=== PATIENT | female | born 1995 | race African-American/Black ===

== ENCOUNTER → 2020-01-01 | Outpatient (CLI) | payer OTHER ==
--- NOTE | 2020-01-01 12:31 | RAD ---
ABDOMEN LTD History: Right upper quadrant pain Comparison: None. Findings: Multiple sonographic images of the abdomen are submitted. There is no abnormality of the visualized pancreas. There is segmental visualization of the inferior vena cava. Hepatic echotexture is within normal limits. Right lobe of the liver measured 15.7 cm longitudinal. Gallbladder is present without intraluminal abnormality, wall thickening, or pericholecystic fluid. Common bile duct is within normal limits about 0.2 cm. Right kidney measured 10.3 x 5.1 x 3.4 cm, no hydronephrosis. Impression: 1. No significant abnormality is demonstrated. Electronically signed by: Eddy Gifford MD (01/01/2020 12:29 PM) [id number]
== END | disposition home or self-care (01) ==
LOC: US 10:46
PROVIDERS: ATTEND Emergency Medicine
DX: K81.9 Cholecystitis, unspecified (principal)
CPT/HCPCS: 76705

== ENCOUNTER 2020-02-17 20:53 | Emergency (ER) | payer OTHER ==
[~2020-02-17] VITALS: Ht 160 cm; Wt 56.0 kg
[2020-02-17 20:55] VITALS: BP 128/55
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
[2020-02-17] MEDS ORDERED: CYCL5TAB PO (21:44)
[2020-02-17] MEDS ORDERED: ACETAMINOPHEN 325 MG TABLET PO ONE (21:45)
[2020-02-17] MEDS ORDERED: CYCLOBENZAPRINE 10 MG TABLET. PO ONE (21:45)
== END 2020-02-17 22:00 | disposition home or self-care (01) ==
LOC: ER 20:53
DX: S29.012A Strain of muscle and tendon of back wall of thorax, initial encounter (principal); X58.XXXA Exposure to other specified factors, initial encounter; Y93.89 Activity, other specified; Y92.89 Other specified places as the place of occurrence of the external cause; Y99.8 Other external cause status
CPT/HCPCS: 99283

== ENCOUNTER 2020-09-08 08:03 | Emergency (ER) | payer OTHER ==
[~2020-09-08] VITALS: Ht 160 cm; Wt 52.3 kg
[~2020-09-08 08:03] MED LIST: CYCL5TAB PO
[2020-09-08] MEDS ORDERED: IBUPROFEN 600 MG TABLET. PO ONE ×2 (08:25→08:30)
--- NOTE | 2020-09-08 08:26 | PHYS DOC ---
Past History Past Medical History: No Pertinent History Past Surgical History: Other Additional Past Surgical Histo: umbilical hernia repair Alcohol Use: None Adult General Chief Complaint Chief Complaint: FINGER INJURY HPI HPI Patient is a 24-year-old female who presents with left pinky finger injury. States that just before coming to the emergency department she slammed her pinky finger in the trunk of her car she is getting ready to go to work. States that it hurts, approximately 5 out of 10, dull and achy in nature. Denies any other injuries. States she is up-to-date on her tetanus vaccination. Review of Systems Review of Systems Review of systems otherwise unremarkable except noted in HPI. Current Medications Current Medications Current Medications Medications (Trade) Dose Ordered Sig/Flavia Start Time Stop Time Status Last Admin Dose Admin Ibuprofen (Motrin) 600 mg 1X ONCE 09/08/20 08:30 09/08/20 08:31 UNV Allergies Allergies Allergies Coded Allergies Type Severity Reaction Last Updated Verified No Known Drug Allergies 09/08/20 No Physical Exam Physical Exam Constitutional: Well developed, well nourished, no acute distress, non-toxic appearance. [] Skin: Warm, dry, no erythema, no rash. [] Extremities: Neurovascular exam intact. Left distal fifth digit with some contusion/bruising and tenderness with a tiny blood blister underneath the nail. Rest of the nail intact, and pink with no obvious damage. Neurologic: Alert and oriented X 3, no focal deficits noted. [] Psychologic: Affect normal, judgement normal, mood normal. [] EKG EKG [] Radiology/Procedures Radiology/Procedures [] Exam performed: Left hand 3 views. Indication: Left fifth digit injury, slammed in the door. Date of Service: 09/08/2020 Comparison: None available Discussion: PA, oblique lateral radiographs of the hand is obtained. There is mild volar subluxation of fifth proximal interphalangeal joint, best seen on oblique and lateral projection with mild overlying soft tissue swelling. There is no foreign body. Impression: Mild subluxation at the fifth proximal phalanx with soft tissue swelling.. No acute fracture is identified. Electronically signed by: Indiana Hurtado MD (09/08/2020 9:03 AM) [id number] Heart Score C/O Chest Pain: No Risk Factors: Risk Factors: DM, Current or recent (<one month) smoker, HTN, HLP, family history of CAD, obesity. Risk Scores: Risk Factors: DM, Current or recent (<one month) smoker, HTN, HLP, family history of CAD, obesity. Course & Med Decision Making Course & Med Decision Making Patient is a 24-year-old female who presents after shutting her pinky in the trunk of her car Vital signs not concerning. Physical exam noted above. Patient given ice pack and ibuprofen. Up-to-date on tetanus. Imaging notable for mild subluxation at the fifth proximal phalanx with some soft tissue swelling but no acute osseous abnormalities. Patient with full range of motion in the emergency department and neurovascularly intact. Most likely reduced on its own. Placed in a finger splint and gave pain control regimen for home. Advised to follow-up with primary care as needed. Gave return precautions to the ED. Patient grateful, verbalized understanding and agreed with plan of discharge. Dragon Disclaimer Dragon Disclaimer This electronic medical record was generated, in whole or in part, using a voice recognition dictation system. Departure Departure: Impression: Primary Impression: Finger injury Additional Impression: Subluxation Disposition: 20 Condition: GOOD Referrals: PCP,AGUSTINA (PCP) ALE OG MD Patient Instructions: RICE - Routine Care for Injuries Additional Instructions: Please read all of the attached information carefully. You can use ice, Tylenol and ibuprofen as needed at home for pain control. You can participate in activities as tolerated. Please follow-up with your primary care physician when you can to set up a follow-up visit in the next week or 2. If you do not have a primary care physician you can contact the local primary care physician at the number provided. Please come back to the emergency department immediately with new or concerning symptoms. Scripts Oxycodone HCl/Acetaminophen (Percocet 5-325 mg Tablet) 1 Each Tablet 1 TAB PO TID PRN for finger injury MDD 2 Tablet(s) for 2 Days, #6 TAB 0 Refills Prov: JAVIER GOODSON MD 09/08/20 Ibuprofen (IBUPROFEN) 600 Mg Tablet 600 MG PO QID for finger injury for 10 Days, #40 TAB Prov: JAVIER GOODSON MD 09/08/20 Problem Qualifiers JAVIER GOODSON MD September 08, 2020 08:26
[2020-09-08] MEDS ORDERED: IBUP600T16 PO (09:04)
--- NOTE | 2020-09-08 09:05 | RAD ---
Exam performed: Left hand 3 views. Indication: Left fifth digit injury, slammed in the door. Date of Service: 09/08/2020 Comparison: None available Discussion: PA, oblique lateral radiographs of the hand is obtained. There is mild volar subluxation of fifth pro ximal interphalangeal joint, best seen on oblique and lateral projection with mild overlying soft tis jonathan swelling. There is no foreign body. Impression: Mild subluxation at the fifth proximal phalanx with soft tissue swelling.. No acute fracture is ident ified. Electronically signed by: Indiana Hurtado MD (09/08/2020 9:03 AM) [id number]
[2020-09-08] MEDS ORDERED: OXYC-325 PO (09:19)
[2020-09-08 09:38] VITALS: BP 125/85
== END 2020-09-08 09:38 | disposition home or self-care (01) ==
LOC: ER 08:03
DX: S63.237A Subluxation of proximal interphalangeal joint of left little finger, initial encounter (principal); W22.8XXA Striking against or struck by other objects, initial encounter; Y93.89 Activity, other specified; Y92.89 Other specified places as the place of occurrence of the external cause; Y99.8 Other external cause status
CPT/HCPCS: 29130; 73130; 99283-25

== ENCOUNTER 2020-09-10 09:23 | Emergency (ER) | payer OTHER ==
[~2020-09-10] VITALS: Ht 160 cm; Wt 52.3 kg
[~2020-09-10 09:23] MED LIST changes: +IBUP600T16 PO; +OXYC-325 PO
[2020-09-10 09:31] VITALS: BP 122/78
--- NOTE | 2020-09-10 09:56 | PHYS DOC ---
Past History Past Medical History: No Pertinent History Past Surgical History: Other Additional Past Surgical Histo: umbilical hernia repair Alcohol Use: None General Adult EDM: Chief Complaint: FINGER INJURY HPI: HPI: 24-year-old female returns the emergency room with a left fifth digit pain. The patient smashed her finger 2 days ago and came to this facility for evaluation. She was told it was dislocated and placed in a splint. The patient had a small subungual hematoma at that time but it is expanded to most of the nail. She also has surrounding erythema and warmth. She is concerned about infection. She states that she has not had any bleeding from the nail. It is painful to palpation. She denies fever or chills. Review of Systems: Review of Systems: Constitutional: Denies fever or chills Eyes: Denies change in visual acuity HENT: Denies nasal congestion or sore throat Respiratory: Denies cough or shortness of breath Cardiovascular: Denies chest pain or edema GI: Denies abdominal pain, nausea, vomiting, bloody stools or diarrhea : Denies dysuria Musculoskeletal: Left fifth digit pain Integument: Denies rash Neurologic: Denies headache, focal weakness or sensory changes Endocrine: Denies polyuria or polydipsia Lymphatic: Denies swollen glands Psychiatric: Denies depression or anxiety Allergies: Allergies: Allergies Coded Allergies Type Severity Reaction Last Updated Verified No Known Drug Allergies 09/08/20 No Physical Exam: PE: Constitutional: Well developed, well nourished, no acute distress, non-toxic appearance. [] HENT: Normocephalic, atraumatic, bilateral external ears normal, oropharynx moist, no oral exudates, nose normal. [] Eyes: PERRLA, EOMI, conjunctiva normal, no discharge. [] Neck: Normal range of motion, no tenderness, supple, no stridor. [] Cardiovascular:Heart rate regular rhythm, no murmur [] Lungs & Thorax: Bilateral breath sounds clear to auscultation [] Abdomen: Bowel sounds normal, soft, no tenderness, no masses, no pulsatile masses. [] Skin: Warm, dry, no erythema, no rash. [] Back: No tenderness, no CVA tenderness. [] Extremities: Left fifth digit with subungual hematoma and surrounding erythema and warmth. [] Neurologic: Alert and oriented X 3, normal motor function, normal sensory function, no focal deficits noted. [] Psychologic: Affect normal, judgement normal, mood normal. [] EKG: EKG: [] Radiology/Procedures: Radiology/Procedures: [] Heart Score: C/O Chest Pain: N/A Risk Factors: Risk Factors: DM, Current or recent (<one month) smoker, HTN, HLP, family history of CAD, obesity. Risk Scores: Score 0 - 3: 2.5% MACE over next 6 weeks - Discharge Home Score 4 - 6: 20.3% MACE over next 6 weeks - Admit for Clinical Observation Score 7 - 10: 72.7% MACE over next 6 weeks - Early Invasive Strategies Course & Med Decision Making: Course & Med Decision Making Pertinent Labs and Imaging studies reviewed. (See chart for details) The patient appeared to need a trephination procedure. I was able to perform this with an 18-gauge needle. I slowly board through the nail with a twisting motion. There was spontaneous evacuation of the thigh blood once a hole was achieved. This was a painless procedure for the patient. She tolerated it well. There were no complications. Given the erythema around the area, I will treat her with Keflex for 7 days. She is stable for discharge at this time. [] Dragon Disclaimer: Malini Disclaimer: This electronic medical record was generated, in whole or in part, using a voice recognition dictation system. Departure Departure: Impression: Primary Impression: Subungual hematoma of left little finger Qualified Codes: S60.152A - Contusion of left little finger with damage to nail, initial encounter Additional Impression: Cellulitis Qualified Codes: L03.012 - Cellulitis of left finger Disposition: 01 HOME / SELF CARE / HOMELESS Condition: IMPROVED Referrals: PCP,NO (PCP) Patient Instructions: Subungual Hematoma, [id number] Scripts Cephalexin (KEFLEX) 750 Mg Capsule 1 CAP PO BID for cellulitis for 7 Days, #14 CAP 0 Refills Prov: RONEN GARZA DO 09/10/20 RONEN GARZA DO September 10, 2020 09:56
[2020-09-10] MEDS ORDERED: CEPH750C9 PO (10:17)
== END 2020-09-10 10:23 | disposition home or self-care (01) ==
LOC: ER 09:23
DX: S60.052A Contusion of left little finger without damage to nail, initial encounter (principal); L03.012 Cellulitis of left finger; X58.XXXA Exposure to other specified factors, initial encounter; Y93.89 Activity, other specified; Y92.89 Other specified places as the place of occurrence of the external cause; Y99.8 Other external cause status
CPT/HCPCS: 99283

== ENCOUNTER 2020-09-19 22:22 | Emergency (ER) | payer OTHER ==
[~2020-09-19] VITALS: Ht 160 cm; Wt 53.9 kg
[~2020-09-19 22:22] MED LIST changes: +CEPH750C9 PO
--- NOTE | 2020-09-19 22:54 | PHYS DOC ---
Past History Past Medical History: No Pertinent History Past Surgical History: Other Additional Past Surgical Histo: umbilical hernia repair Alcohol Use: None Adult General HPI HPI Patient is a 24-year-old female who presents to the emergency department with a chief complaint of concern for yeast infection. States she is had yeast infections in the past and has had a little bit of white discharge over the last couple of days with some itching that feels similar to that. States that she [place] s some bumps down around her vagina that she would like looked at as well. States she also has a history of chlamydia that was treated about 6 months ago. States she has been with her current partner only and he is having no symptoms. Denies any vaginal bleeding dysuria, hematuria or dyspareunia. Denies any fevers, chest pain, shortness of breath, abdominal pain, nausea, vomiting. Review of Systems Review of Systems Review of systems otherwise unremarkable except noted in HPI Allergies Allergies Allergies Coded Allergies Type Severity Reaction Last Updated Verified No Known Drug Allergies 09/08/20 No Physical Exam Physical Exam Constitutional: Well developed, well nourished, no acute distress, non-toxic appearance. [] HENT: Normocephalic, atraumatic, bilateral external ears normal, oropharynx moist, no oral exudates, nose normal. [] Eyes: conjunctiva normal, no discharge. [] Neck: Normal range of motion, no tenderness, supple, no stridor. [] Cardiovascular: Normal sinus rhythm Lungs & Thorax: No respiratory distress Abdomen: soft, no tenderness, no masses, no pulsatile masses. : Patient with minimal white vaginal discharge. Patient with scattered tiny lesions that appear solid with a tiny erythematous base. Does not appear to have any vesicles. [] Skin: Warm, dry, no erythema, no rash. [] Back: no CVA tenderness. [] Extremities: No tenderness, no cyanosis, no clubbing, ROM intact, no edema. [] Neurologic: Alert and oriented X 3, normal motor function, normal sensory function, no focal deficits noted. [] Psychologic: Affect normal, judgement normal, mood normal. [] EKG EKG [] Radiology/Procedures Radiology/Procedures [] Heart Score C/O Chest Pain: No Risk Factors: Risk Factors: DM, Current or recent (<one month) smoker, HTN, HLP, family history of CAD, obesity. Risk Scores: Risk Factors: DM, Current or recent (<one month) smoker, HTN, HLP, family h istory of CAD, obesity. Course & Med Decision Making Course & Med Decision Making Patient is a 24-year-old female who presents to the emergency department with a chief complaint of concern for yeast infection and lesions on her vagina Vital signs not concerning. Physical exam noted above. Discussed differential diagnosis of BV versus Trichomonas versus yeast versus gonorrhea versus chlamydia versus herpes. No obvious open wounds or lymphadenopathy. Patient stated that if the BV/trichomoniasis or yeast came back positive she would want the treatment tonight. States she will wait for the results of her gonorrhea/Chanelle/herpes panel to result before being treated by them. No yeast/trichomonas or BV. Discussed all findings with patient. Given resource information for local primary care physicians and free clinics. Advised to call them first thing in the morning to establish care, and update on ED visit as well as set up a visit as soon as possible. Made aware that the rest of her labs would be available in 24 to 72 hours and she would be called if positive to discuss treatment. Also advised that she can call as well. Patient grateful, verbalized understanding and agreed with plan of discharge [] Dragon Disclaimer Dragon Disclaimer This electronic medical record was generated, in whole or in part, using a voice recognition dictation system. Departure Departure: Disposition: HOME / SELF CARE / HOMELESS Condition: GOOD Referrals: PCP,NO (PCP) Patient Instructions: Sexually Transmitted Disease Additional Instructions: Please read all the attached information very carefully. As discussed, your bacterial vaginosis, trichomonas and yeast were negative here in the emergency department today. As discussed your gonorrhea, chlamydia and herpes test should result in 24 to 72 hours. If they should be positive you will be given a call to discuss treatment. You may also feel free to call and check on results. Please call your primary care physician first thing in the morning to update on your ED visit and set up a follow-up as soon as you can. You are also given res ources for local primary care physician and free clinics. Please come back to the ED with new or concerning symptoms as discussed. JAVIER GOODSON MD September 19, 2020 22:54
[2020-09-20 00:01] LABS: BILIRUBIN,URINE NEG (NEG); CLARITY,URINE CLEAR; COLOR,URINE YELLOW; GLUCOSE,URINE NEG (NEG)
[2020-09-20 00:02] LABS: BACTERIA,URINE 0 /HPF (0-FEW); NITRITE,URINE NEG (NEG); RBC,URINE 0 /HPF (0-2); SQUAMOUS EPITHELIAL CELL,UR FEW /LPF; UROBILINOGEN,URINE 0.2 mg/dL (0.2 mg/dL); WBC,URINE 0 /HPF (0-4)
[2020-09-20 00:55] VITALS: BP 118/70
[2020-09-20] MEDS ORDERED: oxyCODONE/APAP 5/325 1 TAB TABLET PO ONE (01:00)
== END 2020-09-20 01:03 | disposition home or self-care (01) ==
LOC: ER 22:22
DX: B37.9 Candidiasis, unspecified (principal); N76.0 Acute vaginitis; Z20.2 Contact with and (suspected) exposure to infections with a predominantly sexual mode of transmission
CPT/HCPCS: 81001; 86695; 86696; 99283; Q0111; 36415; 81025

== ENCOUNTER 2020-11-25 21:12 | Emergency (ER) | payer OTHER ==
[~2020-11-25] VITALS: Ht 160 cm; Wt 51.2 kg
[2020-11-25 21:25] VITALS: BP 119/74
[2020-11-25] MEDS ORDERED: PENI500T PO (21:47)
--- NOTE | 2020-11-25 21:47 | PHYS DOC ---
Past History Past Medical History: No Pertinent History (GALINA KIMBALL APRN) Past Surgical History: Other Additional Past Surgical Histo: umbilical hernia repair (GALINA KIMBALL APRN) Alcohol Use: None (GALINA KIMBALL APRN) General Adult HPI: HPI: Patient is a 25-year-old female being seen in the ER today for sore throat, fevers, body aches, headache that started today. She rates her pain 7/10. No treatment prior to arrival. Patient denies cough, shortness of breath, nausea/vomiting, sick exposures, nasal congestion/drainage. (GALINA KIMBALL APRN) Review of Systems: Review of Systems: 14 body systems of the review of systems have been reviewed. See HPI for pertinent positive and negative responses, otherwise all other systems are negative, nonpertinent or noncontributory (GALINA KIMBALL APRN) Allergies: Allergies: Allergies Coded Allergies Type Severity Reaction Last Updated Verified No Known Drug Allergies 09/08/20 No (GALINA KIMBALL APRN) Physical Exam: PE: Constitutional: Well developed, well nourished, no acute distress, non-toxic appearance. [] HENT: Normocephalic, atraumatic, bilateral external ears normal, oropharynx moist, 3+ tonsillar enlargement with exudate, tonsillar and pharyngeal erythema, no trismus, nose normal. [] Eyes: PERRL, conjunctiva normal, no discharge. [] Neck: Normal range of motion, no tenderness, supple, no stridor, no cervical lymphadenopathy. [] Cardiovascular:Heart rate regular rhythm, no murmur [] Lungs & Thorax: Bilateral breath sounds clear to auscultation [] Abdomen: Bowel sounds normal, soft, no tenderness, no masses, no pulsatile masses. [] Skin: Warm, dry, no erythema, no rash. [] Back: Normal range of motion Extremities: No tenderness, no cyanosis, no clubbing, ROM intact, no edema. [] Neurologic: Alert and oriented X 3, normal motor function, normal sensory f unction, no focal deficits noted. [] Psychologic: Affect normal, judgement normal, mood normal. [] (GALINA KIMBALL APRN) EKG: EKG: [] (GALINA KIMBALL APRN) Radiology/Procedures: Radiology/Procedures: [] (GALINA KIMBALL APRN) Heart Score: C/O Chest Pain: No Risk Factors: Risk Factors: DM, Current or recent (<one month) smoker, HTN, HLP, family history of CAD, obesity. Risk Scores: Score 0 - 3: 2.5% MACE over next 6 weeks - Discharge Home Score 4 - 6: 20.3% MACE over next 6 weeks - Admit for Clinical Observation Score 7 - 10: 72.7% MACE over next 6 weeks - Early Invasive Strategies (GALINA KIMBALL APRN) Course & Med Decision Making: Course & Med Decision Making Pertinent Labs and Imaging studies reviewed. (See chart for details) [] Patient is a 25-year-old female being seen in the ER today for sore throat, fevers, body aches, headache that started today. Patient was tested for strep. She was also tested for COVID-19. Her rapid strep test was positive. Her Covid test is pending and she will be notified of those results at that time. Patient was treated with Tylenol for fever and she was given her first dose of an antibiotic. I discussed with patient all findings and diagnostic testing as well as the need to follow-up with PCP for further evaluation and treatment or return to the ER if any new or worsening symptoms. Strict return precautions were also discussed at length. Patient voiced understanding and agreement with the plan. Patient is hemodynamically stable at the time of disposition. (GALINA KIMBALL APRN) Course & Med Decision Making Did not see or evaluate patient. Agree with GEOLOGICAL MANAGER's work-up and disposition per note (JAVIER GOODSON MD) Dragon Disclaimer: Dragon Disclaimer: This electronic medical record was generated, in whole or in part, using a voice recognition dictation system. (GALINA KIMBALL APRN) Departure Departure: Impression: Primary Impression: Pharyngitis Qualified Codes: J02.0 - Streptococcal pharyngitis Disposition: HOME / SELF CARE / HOMELESS Condition: GOOD Referrals: PCP,NO (PCP) Patient Instructions: Viral and Bacterial Pharyngitis Additional Instructions: You were seen in the ER today for body aches, headache, sore throat, and fevers. You were tested for strep throat. As we discussed, this was positive. You were given Tylenol for your fever in the ER and your first dose of the antibiotic. Please make sure that you start and finish the antibiotic completely. Please practice good hygiene. Throw away your toothbrush and get a new one. You were also tested for COVID-19. You will be notified of these results when they become available, they typically result in 24 to 48 hours. Please self isolate until you receive these results. If you are positive for COVID-19 you must self isolate for 10 days past your symptom onset. Make sure you are pushing fluids. You can take Tylenol or ibuprofen for your pain or fevers. If you develop increase throat swelling difficulty breathing, difficulty swallowing, high fevers refractory to treatment, shortness of breath, nausea/vomiting, chest pain please return to the ER immediately. EMERGENCY DEPARTMENT GENERAL DISCHARGE INSTRUCTIONS Thank you for coming to [facility] (ED) today and trusting us with you care. We trust that you had a positivie experience in our Emergency Department. If you wish to speak to the department management, you may call the director at [phone]. YOUR FOLLOW UP INSTRUCTIONS ARE FOLLOWS: 1. Do you have a private Doctor? If you do not have a private doctor, please ask for a resource list of physicians or clinics that may be able to assist you with follow up care. 2. The Emergency Physician has interpreted your x-rays. The X-Ray specialist will also review them. If there is a change in the findings, you will be notified in 48 hours when at all possible. 3. A lab test or culture has been done, your results will be reviewed and you will be notified if you need a change in treatment. ADDITIONAL INSTRUCTIONS AND INFORMATION: 1. Your care today has been supervised by a physician who is specially trained in emergency care. Many problems require more than one evaluation for a complete diagnosis and treatment. We recommend that you schedule your follow up appointment as recommended to ensure complete treatment of you illness or injury. If you are unable to obtain follow up care and continue to have a problem, or if your condition worsens, we recommend that you return to the ED. 2. We are not able to safely determine your condition over the phone nor are we able to give sound medical advice over the phone. For these safety reasons, if you call for medical advice we will ask you to come to the ED for further evaluation. 3. If you have any questions regarding these discharge instructions please call the ED at [phone]. SAFETY INFORMATION: In the interest of safety, wellness, and injury prevention; we encourage you to wear your sealbelt, if you smoke; quite smoking, and we encourage family to use a protective helmet for bicycling and other sporting events that present an increased risk for head injury. IF YOUR SYMPTOMS WORSEN OR NEW SYMPTOMS DEVELOP, OR YOU HAVE CONCERNS ABOUT YOUR CONDITION; OR IF YOUR CONDITION WORSENS WHILE YOU ARE WAITING FOR YOUR FOLLOW UP APPOINTMENT; EITHER CONTACT YOUR PRIMARY CARE DOCTOR, THE PHYSICIAN WHOSE NAME AND NUMBER YOU WERE GIVEN, OR RETURN TO THE ED IMMEDIATELY. Scripts Penicillin V Potassium (PENICILLIN V POTASSIUM) 500 Mg Tablet 1 TAB PO BID for strep throat for 9 Days, #18 TAB 0 Refills Prov: GALINA KIMBALL APRN 11/25/20 GALINA KIMBALL APRN Nov 25, 2020 21:47 JAVIER GOODSON MD Nov 25, 2020 22:23
[2020-11-25] MEDS ORDERED: ACETAMINOPHEN 325 MG TABLET PO ONE (22:00)
[2020-11-25] MEDS ORDERED: PENICILLIN V K 250 MG TABLET. PO ONE (22:00)
--- NOTE | 2020-11-26 16:42 | NUR ---
IP: Informed pt of negative covid test. Pt verbalized understanding.
== END 2020-11-25 22:13 | disposition home or self-care (01) ==
LOC: ER 21:12
DX: J02.9 Acute pharyngitis, unspecified (principal); R51.9 Headache, unspecified; Z20.822 Contact with and (suspected) exposure to COVID-19
CPT/HCPCS: 87880; 99283; U0005

== ENCOUNTER 2020-12-30 16:50 | Emergency (ER) | payer OTHER ==
[~2020-12-30] VITALS: Ht 152.4 cm; Wt 52.7 kg
[~2020-12-30 16:50] MED LIST changes: +PENI500T PO
[2020-12-30 17:27] VITALS: BP 141/112
--- NOTE | 2020-12-30 18:15 | PHYS DOC ---
Past History Past Medical History: No Pertinent History Additional Past Medical Histor: herpes (OSCAR MONZON APRN) Past Surgical History: No Surgical History Additional Past Surgical Histo: umbilical hernia repair (OSCAR MONZON APRN) Alcohol Use: None (OSCAR MONZON APRN) Adult General Chief Complaint Chief Complaint: COUGH HPI HPI Patient is a 25-year-old female who presents emergency department chief complaint of being exposed to COVID-19 virus, patient denies symptoms however wishes to be tested today. Patient reports she has not received the COVID-19 virus vaccination. (OSCAR MONZON APRN) Review of Systems Review of Systems 14 body systems of review of systems have been reviewed. See HPI for pertinent positives and negative responses, otherwise all other systems are negative, nonpertinent or noncontributory. Constitutional: Negative except as outlined in HPI above. Skin: Negative except as outlined in HPI above. Eyes: Negative except as outlined in HPI above. HENT: Negative except as outlined in HPI above. Respiratory: Negative except as outlined in HPI above. Cardiovascular: Negative except as outlined in HPI above. GI: Negative except as outlined in HPI above. : Negative except as outlined in HPI above. Musculoskeletal: Negative except as outlined in HPI above. Integument: Negative except as outlined in HPI above. Neurologic: Negative except as outlined in HPI above. Endocrine: Negative except as outlined in HPI above. Lymphatic: Negative except as outlined in HPI above. Psychiatric: Negative except as outlined in HPI above. (OSCAR MONZON APRN) Allergies Allergies Allergies Coded Allergies Type Severity Reaction Last Updated Verified No Known Drug Allergies 12/30/20 No (OSCAR MONZON APRN) Physical Exam Physical Exam Constitutional: Well developed, well nourished, no acute distress, non-toxic appearance. 25-year-old female in no apparent distress. HENT: Normocephalic, atraumatic. Eyes: Conjunctiva normal, no discharge. Neck: Normal range of motion, no stridor. Cardiovascular: No cyanosis appreciated, distal cap refill less than 2 seconds. Lungs & Thorax: Patient is in no respiratory distress, no audible adventitious lung sounds appreciated. Abdomen: Nontender, no abnormalities noted. Skin: Warm, dry, no erythema, no rash. Back: No tenderness, no deformities. Extremities: No tenderness, no cyanosis, no clubbing, ROM intact, no edema. Neurologic: Alert and oriented X 3, normal motor function, normal sensory function, no focal deficits noted. Psychologic: Affect normal, judgement normal, mood normal. (OSCAR MONZON APRN) Current Patient Data Vital Signs Vital Signs Date Time Temp Pulse Resp B/P (MAP) Pulse Ox O2 Delivery O2 Flow Rate FiO2 12/30/20 17:27 98.7 100 141/112 98 Room Air (OSCAR MONZON APRN) EKG EKG [] (OSCAR MONZON APRN) Radiology/Procedures Radiology/Procedures [] (OSCAR MONZON APRN) Heart Score C/O Chest Pain: No Risk Factors: Risk Factors: DM, Current or recent (<one month) smoker, HTN, HLP, family history of CAD, obesity. Risk Scores: Risk Factors: DM, Current or recent (<one month) smoker, HTN, HLP, family history of CAD, obesity. (OSCAR MONZON APRN) Course & Med Decision Making Course & Med Decision Making Pertinent Labs and Imaging studies reviewed. (See chart for details) 25-year-old female, vital signs reviewed, presents emergency room requesting COVID-19 virus testing. Patient physical examination unremarkable, will test for the COVID-19 virus. Discussed home care COVID-19 virus instructions, follow-up with PCP this week, patient is amenable to ED discharge planning. Discussed with the patient all findings and diagnostic testing as well as the need to follow-up with their primary care provider for further evaluation and treatment or return to the ED if any new or worsening symptoms. Strict return precautions were also discussed at length, the patient voiced understanding and agreement with the discharge planning. The patient was nontoxic in appearance, in no apparent distress, and hemodynamically stable at the time of disposition. (OSCAR MONZON APRN) Dragon Disclaimer Dragon Disclaimer This electronic medical record was generated, in whole or in part, using a voice recognition dictation system. (OSCAR MONZON APRN) Departure Departure: Impression: Primary Impression: Person under investigation for COVID-19 Disposition: HOME / SELF CARE / HOMELESS Condition: GOOD Referrals: PCP,NO (PCP) Additional Instructions: You were seen today in the emergency department for exposure to the COVID-19 virus, your tested for the COVID-19 virus today, I have attached information to this document regarding home care for COVID-19 virus patients, please review. Please follow-up with your PCP this week. Thank you for visiting our Emergency Department. It was a pleasure taking care of you today in the emergency department and we appreciate you trusting us with your care. If any additional problems come up don't hesitate to return to visit us. Please follow up with your primary care provider so they can plan additional care if needed and know about the problem that you had. If symptoms worsen come back to the Emergency Department. Any concerning symptoms that start such as chest pain, shortness of air, weakness or numbness on one side of the body, running high fevers or any other concerning symptoms return to the ER. You have been tested for or diagnosed with COVID-19. It is an infection caused by a new type of coronavirus. COVID-19 will cause cold-like or mild flu symptoms in most. It can cause more severe symptoms like problems breathing in some. There is no treatment for COVID-19. The body will clear the infection over time. Self-care will help to ease discomfort. Steps to Take: Self-Care Rest as needed. Healthy habits may help you feel better. Steps include: Choose healthy foods including fruits and vegetables. Drink water throughout the day. Get plenty of sleep each night. If you smoke, try to quit. It may ease breathing. Avoid alcohol. Keep Others Healthy The virus can spread to others. Droplets are released every time you sneeze or cough. The droplets can get into the mouth, nose, or eyes of people near you and lead to infection. To lower the chances of spreading COVID-19 to others: Stay at home until your doctor has said it is safe to leave. If you tested positive this will mean staying isolated until both of the following are true: At least 7 days have passed since the start of illness. You are free of fever for at least 72 hours without the use of medicine. During this time: - Avoid public areas, events, or transportation. Do not return to work or school until your doctor has said it is safe to do so. - Call ahead if you need to go to a medical center. Let them know you may have COVID-19. It will help them guide you where to go. They may also ask you to wear a facemask when you come to the office. - If you call for emergency medical services, let them know you may have COVID- 19. While at home: - Try to avoid close contact with others. Stay about 6 feet away. - If possible, spend most of your time in a separate room from others. - Use a face mask if you will be in close contact with others such as sharing a room or vehicle. - Have someone wipe down common surfaces in the home. Use household film touch up inspector every day on areas like doorknobs, counters, or sinks. - Cough or sneeze into a tissue. Throw the tissue away right after use. If a tissue is not available, cough or sneeze into your elbow. - Wash your hands often. Wash them after sneezing or coughing. Use soap and water and wash for at least 20 seconds. Alcohol based hand cleaner greaser can be used if soap and water is not available. - Do not prepare food for others. Avoid sharing personal items like forks, spoons, or toothbrushes. - Avoid close contact with pets while you are sick. There is no evidence of the virus passing to pets. This is a safety step until more is known about this virus. Isolation can be frustrating. Social interaction can help. Keep in touch with friends and family through phone and tech options. You can still interact with others in your home, just keep a safe distance of about 6 feet. Follow-up: Your doctors office will check in with you to see if there are any changes in your health. You may be asked to keep track of symptoms to share with them. They will also let you know when you are clear to be in public again. Problems to Look Out For: Contact your doctor if your recovery is not going as you expect. Get emergency care if you have problems such as: - Trouble breathing - Nonstop chest pain or pressure - Changes in awareness, confusion, or problems waking - Lips or face have bluish color - Worsening of symptoms If you think you have an emergency, call for emergency medical services right away. As taken from [facility] Attending Signature Attending Signature I have participated in the care of this patient and I have reviewed and agree with all pertinent clinical information above including history, exam, and recommendations. (REINA LEAL MD) OSCAR MONZON APRN Dec 30, 2020 18:15 REINA LEAL MD Jan 03, 2021 08:30
== END 2020-12-30 18:23 | disposition home or self-care (01) ==
LOC: ER 16:50
DX: R05 Cough (principal); R51.9 Headache, unspecified; J02.9 Acute pharyngitis, unspecified; Z20.822 Contact with and (suspected) exposure to COVID-19
CPT/HCPCS: 99283; C9803; U0003

== ENCOUNTER 2021-05-06 12:01 | Emergency (ER) | payer MEDICAID, OTHER ==
[~2021-05-06] VITALS: Ht 157.5 cm; Wt 52.7 kg
[2021-05-06 12:20] VITALS: BP 111/74
[2021-05-06 13:34] LABS: INFLUENZA A PATIENT NEGATIVE (NEGATIVE); INFLUENZA B PATIENT NEGATIVE (NEGATIVE)
--- NOTE | 2021-05-06 13:42 | PHYS DOC ---
Past History Past Medical History: Other Additional Past Medical Histor: herpes (GILBERTO LAM) Additional Past Surgical Histo: umbilical hernia repair (GILBERTO LAM) Alcohol Use: None (GILBERTO LAM) General Adult EDM: Chief Complaint: FEVER HPI: HPI: Patient is a 25 year old female who presents with nasal congestion, cough, sore throat, chest wall pain, body aches that began yesterday. Patient reports no change in her symptoms since onset. Patient's mother tested COVID positive yesterday. The patient, her children, her parents, her brother and sister all live in the same home together. The patient and her children have been staying in the living room of the home. There is only 1 bathroom in the home. She has not been vaccinated against COVID-19 or received a flu shot this season. (GILBERTO LAM) Review of Systems: Review of Systems: ROS negative or noncontributory except as mentioned in HPI. (GILBERTO LAM) Allergies: Allergies: Allergies Coded Allergies Type Severity Reaction Last Updated Verified No Known Drug Allergies 05/06/21 No (GILBERTO LAM) Physical Exam: PE: Constitutional: Well developed, well nourished, no acute distress, non-toxic appearance. HENT: Normocephalic, atraumatic, bilateral external ears normal, oropharynx moist, no oral exudates, nose with swollen turbinates. Eyes: PERRLA, EOMI, conjunctiva normal, no discharge. Neck: Normal range of motion, no tenderness, supple, no stridor. Cardiovascular: Heart rate regular rhythm, no murmur. Lungs & Thorax: Bilateral breath sounds clear to auscultation. Abdomen: Bowel sounds normal, soft, no tenderness, no masses, no pulsatile masses. Skin: Warm, dry, no erythema, no rash. (GILBERTO LAM) Current Patient Data: Labs: Laboratory Tests Test 05/06/21 12:48 Influenza Type A (Rapid) Negative (NEGATIVE) Influenza Type B (Rapid) Negative (NEGATIVE) SARS-CoV-2 Antigen (Rapid) Positive (NEGATIVE) Vital Signs: Vital Signs Date Time Temp Pulse Resp B/P (MAP) Pulse Ox O2 Delivery O2 Flow Rate FiO2 05/06/21 12:20 98.6 91 18 111/74 (86) 99 Room Air (GILBERTO LAM) Heart Score: C/O Chest Pain: No (GILBERTO LAM) Course & Med Decision Making: Course & Med Decision Making Pertinent Labs and Imaging studies reviewed. (See chart for details) Patient is a 25-year-old female with multiple symptoms concerning for viral illness. Patient likely has COVID-19 secondary to staying in a common area of a 1 bathroom home with someone who has known symptomatic COVID-19 infection. (GILBERTO LAM) Course & Med Decision Making I was the Attending physician on the above date of service of this patient. This patient was evaluated, examined, treated, and dispositioned from the emergency department by the mid-level practitioner. Although I was working at the time , no assistance was requested. Electronically signed, Marianna Ramirez DO (MARIANNA RAMIREZ DO) Malini Disclaimer: Malini Disclaimer: This electronic medical record was generated, in whole or in part, using a voice recognition dictation system. (GILBERTO LAM) Departure Departure: Impression: Primary Impression: COVID-19 virus infection Disposition: HOME / SELF CARE / HOMELESS Condition: STABLE Referrals: PCP,AGUSTINA (PCP) Patient Instructions: Viral Syndrome Additional Instructions: Follow the following supportive treatment measures: - Cool mist humidifier with plain water at bedside while you sleep - Mucinex (guaifenesin) per box instructions - Alternate ibuprofen and acetaminophen every four hours for body aches/fever/headache If antibiotics were prescribed, take them as directed. You have been tested for or diagnosed with COVID-19 infection. It is an infection caused by a new type of coronavirus. COVID-19 will cause cold-like or mild flu symptoms in most. It can cause more severe symptoms like problems breathing in some. There is no treatment for COVID-19. The body will clear the infection over time. Self-care will help to ease discomfort. Steps to Take: - Rest as needed. - Choose healthy foods including fruits and vegetables. Drink water throughout the day. - Get plenty of sleep each night. - If you smoke, try to quit. It may ease breathing. - Avoid alcohol. - Keep Others Healthy - The virus can spread to others. Droplets are released every time you sneeze or cough. The droplets can get into the mouth, nose, or eyes of people near you and lead to infection. To lower the chances of spreading COVID-19 to others: Stay at home until your doctor has said it is safe to leave. If you tested positive this will mean staying isolated until both of the following are true: - At least 10 days have passed since the start of illness. - You are free of fever for at least 72 hours without the use of medicine. During this time: - Avoid public areas, events, or transportation. Do not return to work or school until your doctor has said it is safe to do so. - Call ahead if you need to go to a medical center. Let them know you may have COVID-19. It will help them guide you where to go. They may also ask you to wear a facemask when you come to the office. - If you call for emergency medical services, let them know you may have COVID- 19. While at home: - Try to avoid close contact with others. Stay about 6 feet away. - If possible, spend most of your time in a separate room from others. - Use a face mask if you will be in close contact with others such as sharing a room or vehicle. - Have someone wipe down common surfaces in the home. Use household seconds grader every day on areas like doorknobs, counters, or sinks. - Cough or sneeze into a tissue. Throw the tissue away right after use. If a tissue is not available, cough or sneeze into your elbow. - Wash your hands often. Wash them after sneezing or coughing. Use soap and water and wash or at least 20 seconds. Alcohol based hand rug cleaner helper can be used if soap and water is not available. - Do not prepare food for others. Avoid sharing personal items like forks, spoons, or toothbrushes. - Avoid close contact with pets while you are sick. There is no evidence of the virus passing to pets. This is a safety step until more is known about this virus. - Isolation can be frustrating. Social interaction can help. Keep in touch with friends and family through phone and tech options. You can still interact with others in your home, just keep a safe distance of about 6 feet. Follow-up: - Your doctors office will check in with you to see if there are any changes in your health. - You may be asked to keep track of symptoms to share with them. They will also let you know when you are clear to be in public again. Contact your doctor if your recovery is not going as you expect. Get emergency care if you have problems such as: - Trouble breathing with oxygen saturation <90% - Nonstop chest pain or pressure - Changes in awareness, confusion, or problems waking - Lips or face have bluish color - Worsening of symptoms If you think you have an emergency, call for emergency medical services right away. As taken from [facility] Scripts Azithromycin (AZITHROMYCIN TABLET) 250 Mg Tablet 1 PKG PO UD for COVID for 5 Days, #6 TAB 0 Refills 2 the first day followed by 1 for days 2-5 Prov: GILBERTO LAM 05/06/21 GILBERTO LAM May 06, 2021 13:42 MARIANNA RAMIREZ DO May 07, 2021 06:41
[2021-05-06] MEDS ORDERED: AZIT250T6 PO (14:03)
== END 2021-05-06 14:15 | disposition home or self-care (01) ==
LOC: ER 12:01
DX: U07.1 COVID-19 (principal)
CPT/HCPCS: 87426; 87804; 99283

== ENCOUNTER 2021-06-16 14:13 | Emergency (ER) | payer MEDICAID ==
[~2021-06-16] VITALS: Ht 154.9 cm; Wt 53.2 kg
[~2021-06-16 14:13] MED LIST changes: +AZIT250T6 PO
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
[2021-06-16] MEDS ORDERED: ACETAMINOPHEN 325 MG TABLET PO ONE (15:00)
[2021-06-16 16:18] VITALS: BP 112/77
--- NOTE | 2021-06-16 16:18 | RAD ---
CT HEAD AND C-SPINE WO, CT THORACIC SPINE WO dated 06/16/2021 3:52 PM Indication:Reason: neck pain / Spl. Instructions: / History: Fell down stairs. Comparison: No comparison is available. Technique: Helical noncontrast images were performed. Sagittal and coronal reconstructions were obtai merrick. One or more of the following individualized dose reduction techniques were utilized for this examinat ion: 1. Automated exposure control 2. Adjustment of the mA and/or kV according to patient size 3. Use of iterative reconstruction technique Findings: CT head: There is no apparent intracranial hemorrhage or abnormal extra-axial fluid collection. No ar ea of abnormal density is seen in the brain. The ventricles and basilar cisterns are normally positio merrick. Bone windows show no apparent fracture of the skull or abnormal sinus or mastoid opacification. CT cervical spine: Alignment is normal. There is no apparent loss of vertebral body height or prevert ebral soft tissue swelling. No fracture line seen. Intervertebral disks are not narrowed. Evaluation of the soft tissue components of the canal is limited without intrathecal contrast. CT thoracic spine: Alignment is normal. There is no apparent loss of vertebral body height or other e vidence for fracture. Intervertebral disks are not narrowed. Evaluation of the soft tissue components of the canal is limited without intrathecal contrast. IMPRESSION: Negative CT head, CT cervical spine and CT thoracic spine. Electronically signed by: Masoud Smith Jr., MD (06/16/2021 4:15 PM) [id number]
[2021-06-16] MEDS ORDERED: ORPHENADRINE CITRATE 60 MG/2 ML VIAL. IM ONE (16:45)
[2021-06-16] MEDS ORDERED: KETOROLAC 60 MG/2 ML VIAL. IM ONE (16:45)
== END 2021-06-16 17:03 | disposition home or self-care (01) ==
LOC: ER 14:20
DX: M54.6 Pain in thoracic spine (principal); R42 Dizziness and giddiness; M54.2 Cervicalgia; W01.0XXA Fall on same level from slipping, tripping and stumbling without subsequent striking against object, initial encounter; Y93.89 Activity, other specified; Y92.89 Other specified places as the place of occurrence of the external cause; Y99.8 Other external cause status
CPT/HCPCS: 70450; 72125; 72128; 81025; 96372; 99284; J1885

== ENCOUNTER 2021-07-08 12:38 | Emergency (ER) | payer MEDICAID | END 2021-07-08 13:12 | disposition left against medical advice (07) | LOC: ER 12:38 | DX: Z77.21 Contact with and (suspected) exposure to potentially hazardous body fluids (principal); Z53.21 Procedure and treatment not carried out due to patient leaving prior to being seen by health care provider ==

== ENCOUNTER 2021-07-10 01:15 | Emergency (ER) | payer MEDICAID ==
--- NOTE | 2021-07-10 01:20 | PHYS DOC ---
Past History Past Medical History: Other Additional Past Medical Histor: herpes Past Surgical History: No Surgical History Additional Past Surgical Histo: umbilical hernia repair Alcohol Use: None General Adult HPI: HPI: ".. I got bad dental pain.. it hurt all the way across on my Rt. upper teeth... I got an apt. with [facility].. just that I can't stand the pain tonight.." Patient is a 25 year old female who presents with above hx and complaints of den domonique pain pain is located in teeth 1 through 8. No pointing abscess. Teeth are tender to percussion. Patient does have small areas of decay and gingivitis. Patient denies any history immunosuppression. No fevers or chills. Up-to-date with vaccinations. No history of trauma. Denies specific ill contacts. Has no trismus. Review of Systems: Review of Systems: Constitutional: Denies fever or chills Eyes: Denies change in visual acuity HENT: Complains of dental pain Respiratory: Denies cough or shortness of breath Cardiovascular: Denies chest pain or edema GI: Denies abdominal pain, nausea, vomiting, bloody stools or diarrhea : Denies dysuria Musculoskeletal: Denies back pain or joint pain Integument: Denies rash Neurologic: Denies headache, focal weakness or sensory changes Endocrine: Denies polyuria or polydipsia Lymphatic: Denies swollen glands Psychiatric: Denies depression or anxiety Family History: Family History: Noncontributory to presentation Current Medications: Current Meds: See nursing for home meds Allergies: Allergies: Allergies Coded Allergies Type Severity Reaction Last Updated Verified No Known Drug Allergies 05/06/21 No Physical Exam: PE: Constitutional: in acute distress, non-toxic appearance. [] HENT: Normocephalic, atraumatic, bilateral external ears normal, oropharynx moist, no oral exudates, nose normal. [] Dental pain and teeth 1 through 8 Eyes: PERRLA, EOMI, conjunctiva normal, no discharge. [] Neck: Normal range of motion, no tenderness, supple, no stridor. [] Cardiovascular:Heart rate regular rhythm, no murmur [] Lungs & Thorax: Bilateral breath sounds apex scattered wheezes on auscultation [] Abdomen: Bowel sounds normal, soft, no tenderness, no masses, no pulsatile masses. [] Skin: Warm, dry, no erythema, no rash. [] Back: No tenderness, no CVA tenderness. [] Extremities: No tenderness, no cyanosis, no clubbing, ROM intact, no edema. [] Neurologic: Alert and oriented X 3, normal motor function, normal sensory function, no focal deficits noted. [] Psychologic: Affect anxious, judgement normal, mood normal. [] EKG: EKG: [] Radiology/Procedures: Radiology/Procedures: [] Heart Score: C/O Chest Pain: No Risk Factors: Risk Factors: DM, Current or recent (<one month) smoker, HTN, HLP, family history of CAD, obesity. Risk Scores: Score 0 - 3: 2.5% MACE over next 6 weeks - Discharge Home Score 4 - 6: 20.3% MACE over next 6 weeks - Admit for Clinical Observation Score 7 - 10: 72.7% MACE over next 6 weeks - Early Invasive Strategies Course & Med Decision Making: Course & Med Decision Making Pertinent Labs and Imaging studies reviewed. (See chart for details) Patient call dentist for earlier appointment. Take Tylenol and ibuprofen for pain. Take Keflex 500 mg 3 times a day. Patient follow-up primary care. Patient return if any concerns. Impression: 1,Dental pain 2. Dental Carries [] Dragon Disclaimer: Dragon Disclaimer: This electronic medical record was generated, in whole or in part, using a voice recognition dictation system. Departure Departure: Referrals: PCP,NO (PCP) Scripts Cephalexin (KEFLEX) 500 Mg Capsule 500 MG PO TID for dental infection for 10 Days, #30 CAP Prov: REINA LEAL MD 07/10/21 Dragon Disclaimer This chart was dictated in whole or in part using Voice Recognition software in a busy, high-work load, and often noisy Emergency Department environment. It may contain unintended and wholly unrecognized errors or omissions. REINA LEAL MD Jul 10, 2021 01:20
[2021-07-10] MEDS ORDERED: CEPH500C PO (01:44)
[2021-07-10] MEDS ORDERED: CEPHALEXIN 250 MG CAPSULE PO ONE (02:00)
[2021-07-10] MEDS ORDERED: HYDROcodon/IBUPROFEN 7.5/200MG 1 TAB TABLET PO ONE (02:00)
[2021-07-10] MEDS ORDERED: ACETAMINOPHEN 500 MG TABLET PO ONE (02:00)
== END 2021-07-10 01:55 | disposition home or self-care (01) ==
LOC: ER 01:15
DX: K02.9 Dental caries, unspecified (principal)
CPT/HCPCS: 99284